=== PATIENT | female | born 1960 | race Caucasian/White ===

== ENCOUNTER → 2017-01-15 | Outpatient (CLI) | payer OTHER ==
[2017-01-15 18:05] LABS: BASO % 0.4 %; BASO ABS # 0.05 K/uL (0-0.2); COMPLETE YES; EOS % 2.1 %; HEMATOCRIT 45.3 % (37-47); IG% 0.7 %; LYMPH % 21.1 %; LYMPH ABS # 2.51 K/uL (1.2-3.4); MEAN CELL VOLUME 92.4 fL (80-100); MEAN CORPUSCULAR HEMOGLOBIN 31.6 pg (25-34); MEAN CORPUSCULAR HGB CONC 34.2 g/dl (32-36); MEAN PLATELET VOLUME 9.7 fL (7.4-10.4); MONO % 7.2 %; NEUT % 68.5 %; PLATELET COUNT 259 K/uL (130-400)
[2017-01-15 18:14] LABS: ALB/GLOB RATIO 0.9 (0.9-2); ALT/SGPT 30 U/L (12-78); AST/SGOT 17 U/L (15-37); BLOOD UREA NITROGEN 16 mg/dl (7-18); BUN/CREATININE RATIO 23.6 (10-20); CALCIUM 9.2 mg/dl (8.5-10.1); CARBON DIOXIDE 23 mmol/L (21-32); CHLORIDE 106 mmol/L (98-107); CREATININE 0.69 mg/dl (0.60-1.20); GLUCOSE 151 mg/dl (70-99); HDL CHOLESTEROL 38 mg/dl; POTASSIUM 3.9 mmol/L (3.5-5.1); SODIUM 140 mmol/L (136-145)
[2017-01-15 18:23] LABS: ALKALINE PHOSPHATASE 122 U/L (45-117); CHOLESTEROL 271 mg/dl (0-200); CHOLESTEROL/HDL RATIO 7.1; LDL CHOLESTEROL CALCULATED 192 mg/dl; TRIGLYCERIDES 203 mg/dl (0-150); VERY LOW DENSITY LIPOPROT CALC 41 mg/dl
[2017-01-15 18:24] LABS: RATIO 22.9 mcg/mg (0-30.0)
[2017-01-16 07:08] LABS: ESTIMATED AVERAGE GLUCOSE 143 mg/dl; HA1C FLAG Normal (Normal)
== END | disposition home or self-care (01) ==
LOC: C.LABMFLN 08:57
PROVIDERS: ATTEND Family Medicine
DX: I10 Essential (primary) hypertension (principal); E78.5 Hyperlipidemia, unspecified; E11.9 Type 2 diabetes mellitus without complications

== ENCOUNTER 2019-03-25 10:52 | Inpatient (IN) ==
--- NOTE | 2019-03-17 12:56 | PAT Medication Instructions ---
Medication Instructions Date of Service March 17, 2019 Home Medications Medication Instructions Recorded albuterol sulfate HFA 90 2 puffs INHALATION Q4H PRN #1 ea 03/13/19 mcg/actuation aerosol inhaler blood sugar diagnostic strips #30 ea 03/13/19 lancets 33 gauge #30 ea 03/13/19 losartan 25 mg tablet 25 mg PO QPM #90 tab 03/13/19 metformin 500 mg tablet 500 mg PO BID #180 tab 03/13/19 metoprolol succinate ER 50 mg 75 mg PO BID #270 tab 03/13/19 tablet,extended release 24 hr omeprazole 20 mg capsule,delayed 20 mg PO QPM #90 cap 03/13/19 release rosuvastatin 20 mg tablet 20 mg PO QAM #90 tab 03/13/19 venlafaxine ER 150 mg 150 mg PO QPM #90 cap 03/13/19 capsule,extended release 24 hr verapamil ER 180 mg 24 hr 180 mg PO QPM #90 cap 03/13/19 capsule,extended release krill oil 500 mg capsule 500 mg PO DAILY oxycodone-acetaminophen 5 mg-325 mg tablet 1 tab PO NEEDED albuterol sulfate HFA 90 mcg/actuation aerosol inhaler 2 puffs INHALATION Q4H NEEDED aspirin [Aspir-81] 81 mg PO QPM glucosamine-chondroitin [Osteo Bi-Flex] 1 tab PO DAILY losartan 25 mg tablet 25 mg PO QPM metformin 500 mg tablet 500 mg PO BID metoprolol succinate ER 50 mg tablet,extended release 24 hr 75 mg PO BID omeprazole 20 mg capsule,delayed release 20 mg PO QPM rosuvastatin 20 mg tablet 20 mg PO QAM venlafaxine ER 150 mg capsule,extended release 24 hr 150 mg PO QPM verapamil ER 180 mg 24 hr capsule,extended release 180 mg PO QPM ASK your prescriber and surgeon aspirin [Aspir-81] 81 mg PO QPM STOP taking 2 weeks before surgery krill oil 500 mg capsule 500 mg PO DAILY glucosamine-chondroitin [Osteo Bi-Flex] 1 tab PO DAILY DO NOT take the morning of surgery metformin 500 mg tablet 500 mg PO BID Take morning of surgery With a small sip of water, OTHERWISE NOTHING TO EAT OR DRINK AFTER MIDNIGHT: oxycodone-acetaminophen 5 mg-325 mg tablet 1 tab PO NEEDED (if needed; stop 4 hours prior to surgery) albuterol sulfate HFA 90 mcg/actuation aerosol inhaler 2 puffs INHALATION Q4H NEEDED (if needed; bring to hospital) metoprolol succinate ER 50 mg tablet,extended release 24 hr 75 mg PO BID rosuvastatin 20 mg tablet 20 mg PO QAM Take evening before surgery oxycodone-acetaminophen 5 mg-325 mg tablet 1 tab PO NEEDED (if needed) albuterol sulfate HFA 90 mcg/actuation aerosol inhaler 2 puffs INHALATION Q4H NEEDED (if needed) losartan 25 mg tablet 25 mg PO QPM metformin 500 mg tablet 500 mg PO BID metoprolol succinate ER 50 mg tablet,extended release 24 hr 75 mg PO BID omeprazole 20 mg capsule,delayed release 20 mg PO QPM venlafaxine ER 150 mg capsule,extended release 24 hr 150 mg PO QPM verapamil ER 180 mg 24 hr capsule,extended release 180 mg PO QPM Other Notes If you have any questions please call us at [phone] or [phone] or [phone] or [phone]
--- NOTE | 2019-03-17 15:14 | Anesthesiology Consultation ---
Date of Service March 17, 2019 Assessment & Plan (1) Encounter for pre-operative examination: - No previous anesthesia records available Chart Review Chart Review: Acceptable Risk for Surgery and Patient seen in Pre Admission Testing Consults Requested medical & cardiac (Dr. Ignacia Martinez (03/19) & Dr. Bazzi (03/10)) - Patient was seen on 03/10 by cardiology for preoperative evaluation. Per visit note from that date, "she may proceed at low cardiovascular risk". - Patient was seen by PCP's office on 03/19/19 for preoperative evaluation. Per note from that visit, "Pt is considered medically cleared to have lumbar surgery with Dr. Magdaleno, average risk" Teaching & Discussion Pre-Anesthesia Teaching/Discussion Notes: Instructed NPO after midnight before surgery, except medications with 15 cc of water. Medication instructions provided according to the PAT guidelines. History Surgery Operation Date: 03/25/19 12:55 Proposed Procedures p L4-L5 Decompression and Fusion, with Spinal Cord Mointoring - Antony Magdaleno, Height/Weight Height: 5 ft 7 in Weight: 98.6 kg Allergies Allergy/AdvReac Type Severity Reaction Status Date / Time walnut Allergy Unknown HIVES IN Verified 03/13/19 12:36 MOUTH acetaminophen [From Vicodin] AdvReac Unknown itchy Verified 03/13/19 12:36 adhesive tape AdvReac Unknown rash Verified 03/13/19 12:36 hydrocodone [From Vicodin] AdvReac Unknown itchy Verified 03/13/19 12:36 lisinopril AdvReac Unknown Cough Verified 03/13/19 12:36 statin AdvReac Unknown Muscle Uncoded 03/13/19 12:36 cramps Medications Home Medications Medication Instructions Recorded Confirmed Last Taken krill oil 500 mg capsule 500 mg PO DAILY cap 03/04/19 03/19/19 Unknown oxycodone-acetaminophen 5 mg-325 1 tab PO UD PRN #60 tab 03/04/19 03/19/19 Unknown mg tablet aspirin [Aspir-81] 81 mg PO QPM 03/13/19 03/19/19 03/12/19 blood sugar diagnostic strips #30 ea 03/13/19 03/13/19 Unknown glucosamine-chondroitin [Osteo 1 tab PO DAILY 03/13/19 03/19/19 Unknown Bi-Flex] lancets 33 gauge #30 ea 03/13/19 03/13/19 Unknown losartan 25 mg tablet 25 mg PO QPM #90 tab 03/13/19 03/13/19 Unknown metformin 500 mg tablet 500 mg PO BID #180 tab 03/13/19 03/13/19 Unknown metoprolol succinate ER 50 mg 75 mg PO BID #270 tab 03/13/19 03/13/19 Unknown tablet,extended release 24 hr omeprazole 20 mg capsule,delayed 20 mg PO QPM #90 cap 03/13/19 03/13/19 Unknown release rosuvastatin 20 mg tablet 20 mg PO QAM #90 tab 03/13/19 03/13/19 Unknown venlafaxine ER 150 mg 150 mg PO QPM #90 cap 03/13/19 03/13/19 Unknown capsule,extended release 24 hr verapamil ER 180 mg 24 hr 180 mg PO QPM #90 cap 03/13/19 03/13/19 Unknown capsule,extended release Past Medical History Medical History Anxiety (Acute) Esophageal reflux (Acute) Hyperlipidemia (Acute) Hypertension (Acute) Left lumbar radiculopathy (Acute) Lumbar canal stenosis (Acute) Palpitations (Acute) PVC'S AND PAC'S Psoriasis (Acute) Type 2 diabetes mellitus (Acute) History of Helicobacter pylori infection History of migraine headaches Hyperactive pharyngeal gag reflex Osteoarthritis Exercise / Class Metabolic Activity II 4-5 Yardwork/Stairs/Walk up hill (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 Swims, gardening, cuts grass. Able to climb stairs one at a time. Denies CP or SOB. ) Past Family History Family History Grandfather Family history of lung cancer Other Family history of breast cancer Family history of colon cancer in mother Past Surgical History Surgical History History of arthroscopy of right knee History of cardiac cath 15 YR AGO...NO FINDINGS...FRITZ? History of colon resection WITH COLOSTOMY AND SINCE REVERSED History of colonoscopy History of endoscopy History of eyelid surgery History of foot surgery R / JOINT REPLACED History of hysterectomy History of incisional hernia repair X2 History of tubal ligation Past Anesthesia History No Hx of Anesthesia Complications and No Family Hx of Anesthesia Complications History of PONV No Hx of PONV and No Hx of Motion Sickness Social History Smoking Status: Current every day smoker tobacco type: cigarettes Smoking cigarettes per day: 0.5PPD/ADVISED NPO Do You Dip or Chew Tobacco: No Hx Alcohol Use: Yes Alcohol type: wine and hard liquor alcohol intake frequency: holidays/special occasions only Hx Substance Use: No substance use type: does not use Review of Systems Patient denies chest pain, shortness of breath, dyspnea on exertion, cough, wheezing, palpitations. +Joint Pain (Back, Left Shoulder, Bilat Knees, Neck, Right Middle Finger) +Acid Reflux (Controlled with medication/diet) +Palpitations (Due to PVCs and PACs) Physical Exam Vital Signs BP: 119/74 P: 65 R: 18 T: 97.6 SPO2: 97% on RA ENMT Mouth: + poor dentition Thyromental Distance: > or= 3.5 Finger Breadths (4) Mallampati Class: II Neck normal visual inspection and trachea midline; neck extension not limited Respiratory normal respiratory effort Auscultation: lungs clear to auscultation bilaterally Cardiovascular Rate/Rhythm: regular rate and regular rhythm Heart Sounds: no murmur Vessels: no carotid bruit Neurologic moves all extremities Psychiatric Orientation: alert and oriented x 3 Testing Laboratory Results 03/17/19 15:34 03/17/19 15:34 PT 10.0 Seconds (9.0-12.0) 03/17/19 15:34 INR 1.0 (0.9-1.1) 03/17/19 15:34 APTT 31.6 Seconds (21.0-31.0) H 03/17/19 15:34 Urine Color Yellow 03/17/19 15:34 Urine Appearance Clear (Clear) 03/17/19 15:34 Urine pH 6.5 (4.5-7.5) 03/17/19 15:34 Ur Specific Rayle 1.023 (1.000-1.030) 03/17/19 15:34 Urine Protein Negative (Negative) 03/17/19 15:34 Urine Glucose (UA) Negative (Negative) 03/17/19 15:34 Urine Ketones Trace (Negative) H 03/17/19 15:34 Urine Nitrite Negative (Negative) 03/17/19 15:34 Ur Leukocyte Esterase Negative (Negative) 03/17/19 15:34 Blood Type A Positive 03/17/19 15:34 Antibody Screen NEGATIVE 03/17/19 15:34 Laboratory Tests 03/17/19 15:34 Hemoglobin A1c 6.1 H Electrocardiogram Date: 03/19/19 Findings: + SB @ (56) New bradycardia. PVCs have resolved. Chest X-Ray Date: 10/19/18 Findings: + NAD Stress Test Date: 11/06/18 Type: exercise Exercise echo exam is sub maximal as the patient only achieved 61% of target heart rate. There were no EKG or echo wall motion abnormalities of inducible ischemia. Patient denied chest discomfort reporting only leg pain and fatigue at peak exercise. Inadequate cardiovascular stress test as patient obtained 61% of their age predicted maximal target HR Patient exercise for 4:11 minutes of the Thom protocol with a functional capacity of 5.0 METS. No significant arrhythmias were noted. Normal blood pressure and HR response to exercise. The baseline Echo Doppler study is unremarkable. The left ventricular endocardium is adequately assessed using ultrasound e nhancing agent Definity. Resting EKG: Sinus rhythm and the tracing is normal. Stress EKG: No significant ST changes noted during peak exercise. Occasional PACs were noted during stress. The stress test was terminated due to fatigue. No symptoms were noted.
[2019-03-17 15:57] LABS: Basophils # (auto) 0.03 K/uL (0-0.2); Basophils % (auto) 0.2 %; Eosinophils # (auto) 0.28 K/uL (0-0.5); Eosinophils % (auto) 2.3 %; Hematocrit (blood only) 43.5 % (37-47); Hemoglobin 14.7 g/dL (12.0-16.0); Immature Granulocytes # (auto) 0.03 K/uL (0.00-0.02); Immature Granulocytes % (auto) 0.2 %; Lymphocytes # (auto) 3.68 K/uL (1.2-3.4); Mean Corpuscular Hgb Conc 33.8 g/dL (32-36); Mean Corpuscular Volume 91.8 fL (80-100); Mean Platelet Volume 9.5 fL (7.4-10.4); Monocytes # (auto) 0.77 K/uL (0.11-0.59); Monocytes % (auto) 6.3 %; Neutrophils # (auto) 7.49 K/uL (1.4-6.5); Platelet Count 253 K/uL (130-400); RDW Coefficient of Variation 12.4 % (11.5-14.5); RDW Standard Deviation 41.9 fL (36.4-46.3); Red Blood Count 4.74 M/uL (4.2-5.4); White Blood Count 12.28 K/uL (4.8-10.8)
[2019-03-17 16:01] LABS: Appearance Urine Clear (Clear); Bilirubin Urine Negative (Negative); Blood Urine Negative (Negative); Color Urine Yellow; Glucose Urine UA Negative (Negative); Ketones Urine Trace (Negative); Leukocyte Esterase Urine Negative (Negative); Nitrite Urine Negative (Negative); Protein Urine Negative (Negative); Specific Gravity Urine 1.023 (1.000-1.030); Urobilinogen Urine Negative (Negative); pH Urine 6.5 (4.5-7.5)
[2019-03-17 16:04] LABS: BUN Creatinine Ratio 30.8 (10-20); Calcium 9.4 mg/dl (8.5-10.1); Creatinine Clr Calc Pharmacy 112.1 ml/min; Est GFR (African American) 112.9; Est GFR (Non-African American) 97.4; Potassium 3.8 mmol/L (3.5-5.1)
[2019-03-17 16:08] LABS: Partial Thromboplastin Ratio 1.2; Partial Thromboplastin Time 31.6 Seconds (21.0-31.0)
[~2019-03-25 10:52] MED LIST: CEFAZOLIN 2000MG 2,000 MG/15 ML SYR IV SCH; LR 15ML/HR IV SCH
[2019-03-25] MEDS ORDERED: ATROPINE SULFATE 0.1 MG/ML 10ML SYR IV PRN (11:13)
[2019-03-25] MEDS ORDERED: ePHEDrine sulfate 50 MG/ML AMP IV PRN (11:13)
[2019-03-25] MEDS ORDERED: HYDROmorphone INJ 2 MG/ML SYR/VIAL IV PRN (11:13)
[2019-03-25] MEDS ORDERED: fentaNYL citrate 100 MCG/2 ML VIAL IV PRN (11:13)
[2019-03-25] MEDS ORDERED: fentaNYL citrate 100 MCG/2 ML VIAL ONE ×4 (12:16→14:45)
[2019-03-25] MEDS ORDERED: MIDAZOLAM HCL 1 MG/ML 2ML VIAL ONE (12:16)
--- NOTE | 2019-03-25 12:28 | History & Physical Bridge Note ---
Date of Service March 25, 2019 History & Physical Bridge Note I have examined the patient, reviewed the History & Physical and in the interval since the performance of the History & Physical I have noted the following changes of clinical significance: no changes noted
--- NOTE | 2019-03-25 12:29 | History & Physical Report ---
Date of Service March 25, 2019 Assessment & Plan (1) Spinal stenosis, lumbar region with neurogenic claudication: L4-S1 decompression and fusion Present on Admission?: Yes History of Present Illness Chief Complaint: Back and leg pain Primary Care Provider: Rose Martinez MD This is a 50-year-old female who presents with chronic persistent back and leg pain. After failing extensive course of nonoperative care she is here for surgical intervention. Allergies Allergy/AdvReac Type Severity Reaction Status Date / Time walnut Allergy Unknown HIVES IN Verified 03/25/19 11:36 MOUTH adhesive tape AdvReac Unknown rash Verified 03/25/19 11:36 hydrocodone [From Vicodin] AdvReac Unknown itchy Verified 03/25/19 11:36 lisinopril AdvReac Unknown Cough Verified 03/25/19 11:36 [id number] Reductase AdvReac Muscle Pain Verified 03/25/19 11:36 Inhibitor Home Medications Home Medications Medication Instructions Recorded Confirmed Type krill oil 500 mg capsule 500 mg PO DAILY cap 03/04/19 03/25/19 History oxycodone-acetaminophen 5 mg-325 1 tab PO UD PRN #60 tab 03/04/19 03/25/19 History mg tablet aspirin [Aspir-81] 81 mg PO QPM 03/13/19 03/25/19 History blood sugar diagnostic strips #30 ea 03/13/19 03/13/19 Rx glucosamine-chondroitin [Osteo 1 tab PO DAILY 03/13/19 03/25/19 History Bi-Flex] lancets 33 gauge #30 ea 03/13/19 03/13/19 Rx losartan 25 mg tablet 25 mg PO QPM #90 tab 03/13/19 03/25/19 Rx metformin 500 mg tablet 500 mg PO BID #180 tab 03/13/19 03/25/19 Rx metoprolol succinate ER 50 mg 75 mg PO BID #270 tab 03/13/19 03/25/19 Rx tablet,extended release 24 hr omeprazole 20 mg capsule,delayed 20 mg PO QPM #90 cap 03/13/19 03/25/19 Rx release rosuvastatin 20 mg tablet 20 mg PO QAM #90 tab 03/13/19 03/25/19 Rx venlafaxine ER 150 mg 150 mg PO QPM #90 cap 03/13/19 03/25/19 Rx capsule,extended release 24 hr verapamil ER 180 mg 24 hr 180 mg PO QPM #90 cap 03/13/19 03/25/19 Rx capsule,extended release Past Med/Surg History Family History Grandfather Family history of lung cancer Other Family history of breast cancer Family history of colon cancer in mother Social History Preferred Language: Danish Communication Ability: Effective Financial Investment Manager Required: No Beliefs That Will Affect Care: Islam Islam Beliefs: JEW Current Living Situation: Spouse, Family and Other Other Information That Helps Us Care for You: No Feels Safe at Home: Yes Smoking Status: Current every day smoker Tobacco Type: cigarettes packs per day: 0.5 Do You Dip or Chew Tobacco: No Second Hand Exposure: Yes Hx Alcohol Use: Yes Alcohol type: wine and hard liquor Hx Substance Use: No Physical Exam Physical Exam: Patient is alert and oriented neurologically intact. Results & Data Vital Signs (Past 12 Hours) Vital Signs Temp Pulse Resp BP Pulse Ox 03/25/19 11:41 36.7 C 65 20 155/83 H 96
[2019-03-25] MEDS ORDERED: HYDROmorphone INJ 2 MG/ML SYR/VIAL ONE ×2 (12:41→14:41)
[2019-03-25] MEDS ORDERED: BUPIVACAINE/EPINEPHRINE 0.5% MPF 1:200,000 30 ML VIAL ONE (12:45)
[2019-03-25] MEDS ORDERED: BACITRACIN INJ 50,000 UNIT VIAL ONE (12:45)
[2019-03-25] MEDS ORDERED: ALBUTEROL HFA INHALER 8.5 GM ONE ×2 (13:17→13:34)
[2019-03-25] MEDS ORDERED: DEXAMETHASONE SOD INJ 4 MG/ML VIAL ONE (13:34)
[2019-03-25] MEDS ORDERED: GLYCOPYRROLATE 0.2 MG/ML VIAL ONE (13:34)
[2019-03-25] MEDS ORDERED: ONDANSETRON INJ 2 MG/ML 2 ML VIAL ONE (13:34)
[2019-03-25] MEDS ORDERED: PROPOFOL IV EMULSION 10 MG/ML 20 ML VIAL IV ONE ×2 (13:34→14:25)
[2019-03-25] MEDS ORDERED: LIDOCAINE HCL 2% 2 ML VIAL/AMP(20MG/ML) INFIL ONE (13:34)
[2019-03-25] MEDS ORDERED: FLOSEAL HEMOSTATIC MATRIX 10ML TOP ONE (13:34)
[2019-03-25] MEDS ORDERED: ePHEDrine sulfate 50 MG/ML SYR ONE (13:34)
[2019-03-25] MEDS ORDERED: NEOSTIGMINE METHYLSULFATE 1 MG/ML 10ML VIAL ONE (13:34)
[2019-03-25] MEDS ORDERED: LARYING-O-JET KIT (LTA) ONE (13:34)
[2019-03-25] MEDS ORDERED: ROCURONIUM BROMIDE 10 MG/ML 5 ML VIAL ONE ×2 (13:34→14:25)
[2019-03-25] MEDS ORDERED: KETOROLAC 30 MG/ML VIAL ONE (15:02)
--- NOTE | 2019-03-25 15:09 | Operative Report ---
Post Operative Report Pre & Post Diagnosis Operation Date: 03/25/19 12:55 Pre-Op Diagnosis: lumbar spinal stenosis with neurogenic claudication. Spondylolisthesis L4-5 Post-Op Diagnosis: Same Procedure Operation Date: 03/25/19 12:55 Actual Procedures #1 lumbar decompression with bilateral medial facetectomies and foraminotomies L3-4 L4-5 L5-S1 per #2 posterior spinal fusion L4-5 L5-S1 per #3 placement posterior his mentation L4-5 L5-S1 per #4 interbody fusion L4-5. #5 placement of peek cage 12 x 22 mm at L4-5 per #6 placement of local autograft in the posterior lateral gutters per #7 placement infuse collagen sponge bone mass graft in the posterior lateral gutters and ostial amp in the interbody space. Surgeon Antony Magdaleno, DO Field Cashier Mojgan Cuadra Estimated Blood Loss 225 Findings See Below The patient is 5 foot 7 inches tall weighing 99 kg with a BMI of 34. Patient's body habitus prolonged surgical time by 40% and increased significant surgical difficulty requiring our deepest retractors and longus Kerrisons in order to perform her procedure. Specimens None Indications This is a 58-year-old female who presents with above-mentioned diagnosis after failing extensive course of nonoperative care is here for surgical intervention. Description of Procedure Patient was met with identified and informed consent obtained. Patient was then taken to the operative suite underwent intubation placed in a prone position on the Giovanni table on top of the [place] frame. All bony prominences well-padded eyes inspected to ensure no external pressure placed upon the peer at this point the lumbar spine was prepped and draped in the normal sterile fashion. Sharp dissection with the assistance of Bovie cautery was performed down to and exposing the lamina and transverse processes for L5 and sacral ala bilaterally. From a caudal to cephalad fashion complete laminectomy of L5 L4 and partial laminectomy of addressing severe lateral recess and foraminal stenosis. Pedicle screws were then placed in L4-L5 and sacral ala bilaterally. The probably size fide placed by way of a transforaminal approach and left complete discectomy of L4-5 was performed in plate graded to subcortical bleeding bone and a 12 x 22 mm peek cage filled with osteo-amp bone graft tapped in position. The rods were then locked in final position bilaterally. The transverse processes of L4-L5 and sacral ala bur to subcortical bleeding bone. Infuse collagen sponge master graft local autograft placed in the posterior lateral gutters. 15 round PATRICIA drain was then inserted. The incision was then closed with 1 Vicryl fascia 2-0 Vicryl subcutaneously and 4 Monocryl for final skin closure. Steri-Strip sterile dressings placed. Patient awakened taken to PACU stable condition. Please note Mojgan Cuadra was present throughout the entire procedure involved the patient positioning complex portions of the surgery and final skin closure. Lastly spinal cord monitoring was utilized that procedure no changes noted. I attest to the content of the Intraoperative Record and any orders documented therein. Any exceptions are noted below.
--- NOTE | 2019-03-25 15:16 | Fluoroscopy Report ---
FL lumbar spine 2-3V CLINICAL HISTORY: L4-L5 DECOMPRESSION AND FUSION COMPARISON STUDY: None FLUOROSCOPY TIME: 21 seconds. NUMBER OF FLUOROSCOPIC IMAGES: 2 FINDINGS: 2 intraoperative fluoroscopic spot images reveal postsurgical changes of a lower lumbar dis cectomy and interbody fusion. There is a possible transitional vertebra, and accurate numbering is no t possible on the limited [id number] images. There is posterior fusion with 3 level consecutive pe dicle screws and adjoining spinal rods. IMPRESSION: Intraoperative radiographs demonstrating postsurgical changes of discectomy and interbod y fusion and posterior pedicle screw fixation Electronically signed by: Clifford Newby M.D. 03/25/2019 3:14 PM
--- NOTE | 2019-03-25 15:58 | Anesthesiology Progress Note ---
Date of Service March 25, 2019 Anesthesia Post Procedure Vital Signs Vital Signs: Temp Pulse Pulse Resp BP Pulse Ox 03/25/19 15:50 81 15 178/76 H 94 03/25/19 15:40 84 15 169/75 H 96 03/25/19 15:30 36.7 C 86 14 166/82 H 96 03/25/19 11:41 36.7 C 65 20 155/83 H 96 Pain Intensity Left Leg: Pain Intensity: 3 Transfer of Care Handoff Completed per policy Notes Mental Status: alert / awake / arousable Patient Amnestic to Procedure: Yes Nausea / Vomiting: adequately controlled Pain: adequately controlled Airway Patency, RR, SpO2: stable & adequate BP & HR: stable & adequate Hydration State: stable & adequate Anesthetic Complications: no major complications apparent and Pt Satisfied with anesthetic care
[2019-03-25] MEDS ORDERED: ACETAMINOPHEN 1,000 MG/100 ML VIAL IV PRN (16:25)
[2019-03-25] MEDS ORDERED: ONDANSETRON 4 MG TAB PO PRN (16:25)
[2019-03-25] MEDS ORDERED: HYDROmorphone INJ 0.5 MG/0.5 ML SYR IV PRN (16:25)
[2019-03-25] MEDS ORDERED: METOCLOPRAMIDE HCL INJ 5 MG/ML 2 ML VIAL IV PRN (16:25)
[2019-03-25] MEDS ORDERED: ALUMINUM/MAGNESIUM SUSP 30 ML UDC PO PRN (16:25)
[2019-03-25] MEDS ORDERED: PROMETHAZINE HCL 12.5 MG in SODIUM CHLORIDE 0.9% 50 ML IV PRN (16:25)
[2019-03-25] MEDS ORDERED: SOD PHOSPHATE/SOD BIPHOSPHATE ENEMA 132 ML BTL PR PRN (16:25)
[2019-03-25] MEDS ORDERED: DO NOT ADMINISTER FLU VACCINE PRN (16:25)
[2019-03-25] MEDS ORDERED: DO NOT ADMINISTER PNEUMOCOCCAL VACCINE PRN (16:25)
[2019-03-25] MEDS ORDERED: ACETAMINOPHEN 500 MG TAB PO PRN (16:25)
[2019-03-25] MEDS ORDERED: FAMOTIDINE 20 MG TAB PO PRN (16:25)
[2019-03-25] MEDS ORDERED: LORazepam 0.5 MG/1 ML VIAL IV PRN (16:25)
[2019-03-25] MEDS ORDERED: LORazepam 0.5 MG TAB PO PRN (16:25)
[2019-03-25] MEDS ORDERED: BISACODYL 10 MG SUPP PR PRN (16:25)
[2019-03-25] MEDS ORDERED: ONDANSETRON INJ 2 MG/ML 2 ML VIAL IV PRN (16:25)
[2019-03-25] MEDS ORDERED: MAGNESIUM HYDROXIDE SUSP 30 ML UDC PO PRN (16:25)
[2019-03-25] MEDS: OXYCODONE HCL IR 5 MG TAB (IMMEDIATE RELEASE) PO PRN ×3 (16:40→21:01)
[2019-03-25] MEDS: KETOROLAC TROMETHAMINE 15 MG/ML VIAL IV SCH ×3 (17:47→22:04)
[2019-03-25] MEDS ORDERED: COUGH DROP (SUGAR FREE) LOZ 24 LOZ/1 BOX BUCCAL PRN (19:15)
[2019-03-25] MEDS: LOSARTAN POTASSIUM 25 MG TAB PO SCH (20:47)
[2019-03-25] MEDS: ASPIRIN 81 MG ECTAB PO SCH (20:47)
[2019-03-25] MEDS: PANTOprazole 40 MG TAB PO SCH (20:48)
[2019-03-25] MEDS: METOPROLOL SUCC 50MG EXT REL TAB PO SCH (20:48)
[2019-03-25] MEDS: VENLAFAXINE HCL XR 150 MG CAPXR PO SCH (20:48)
[2019-03-25] MEDS: VERAPAMIL HCL 180 MG TABCR PO SCH (20:48)
[2019-03-25] MEDS: DOCUSATE SODIUM/SENNA 50/8.6MG TAB PO SCH (20:48)
[2019-03-25] MEDS: CEFAZOLIN 2000MG 2,000 MG/15 ML SYR IV SCH (21:01)
[2019-03-25] MEDS: SODIUM CHLORIDE 0.9% 1000ML 1,000 ML IV SCH ×2 (21:43→23:29)
[2019-03-26] MEDS: OXYCODONE HCL IR 5 MG TAB (IMMEDIATE RELEASE) PO PRN ×5 (01:04→23:28)
[2019-03-26] MEDS: TRAMADOL HCL 50 MG TABLET PO PRN ×3 (02:35→22:15)
[2019-03-26] MEDS: CEFAZOLIN 2000MG 2,000 MG/15 ML SYR IV SCH (04:09)
[2019-03-26] MEDS: KETOROLAC TROMETHAMINE 15 MG/ML VIAL IV SCH ×2 (04:10→11:21)
[2019-03-26] MEDS: SODIUM CHLORIDE 0.9% 1000ML 1,000 ML IV SCH (04:25)
[2019-03-26] MEDS: POLYETHYLENE (MIRALAX) 17 GM PACK PO SCH ×4 (05:44→23:24)
[2019-03-26 06:10] LABS: Basophils # (auto) 0.01 K/uL (0-0.2); Hematocrit (blood only) 35.2 % (37-47); Hemoglobin 11.9 g/dL (12.0-16.0); Immature Granulocytes # (auto) 0.07 K/uL (0.00-0.02); Immature Granulocytes % (auto) 0.3 %; Lymphocytes # (auto) 1.51 K/uL (1.2-3.4); Lymphocytes % (auto) 7.5 %; Mean Corpuscular Hgb Conc 33.8 g/dL (32-36); Mean Corpuscular Volume 91.4 fL (80-100); Mean Platelet Volume 9.7 fL (7.4-10.4); Monocytes # (auto) 1.26 K/uL (0.11-0.59); Monocytes % (auto) 6.3 %; Neutrophils # (auto) 17.22 K/uL (1.4-6.5); Neutrophils % (auto) 85.9 %; Platelet Count 219 K/uL (130-400); RDW Coefficient of Variation 12.2 % (11.5-14.5); RDW Standard Deviation 41.2 fL (36.4-46.3); Red Blood Count 3.85 M/uL (4.2-5.4); White Blood Count 20.07 K/uL (4.8-10.8)
[2019-03-26 06:44] LABS: BUN Creatinine Ratio 30.3 (10-20); Calcium 8.7 mg/dl (8.5-10.1); Creatinine Clr Calc Pharmacy 91.4 ml/min; Est GFR (African American) 92.8; Est GFR (Non-African American) 80.1
--- NOTE | 2019-03-26 07:56 | Anesthesiology Progress Note ---
Date of Service March 26, 2019 Anesthesia Post Procedure Vital Signs Vital Signs: Temp Pulse Pulse Pulse Pulse Resp BP 03/26/19 02:25 36.8 C 73 16 166/70 H 03/26/19 01:00 70 03/25/19 23:00 36.5 C 74 16 163/77 H 03/25/19 19:12 36.6 C 73 16 147/80 H 03/25/19 18:42 80 18 03/25/19 17:18 36.5 C 70 17 135/78 03/25/19 16:55 36.4 C L 69 16 03/25/19 16:15 36.9 C 74 15 03/25/19 16:00 36.4 C L 77 16 03/25/19 15:50 81 15 03/25/19 15:40 84 15 03/25/19 15:30 36.7 C 86 14 03/25/19 11:41 36.7 C 65 20 BP Pulse Ox 03/26/19 02:25 94 03/26/19 01:00 160/80 H 03/25/19 23:00 97 03/25/19 19:12 98 03/25/19 18:42 152/80 H 03/25/19 17:18 93 03/25/19 16:55 130/76 96 03/25/19 16:15 159/79 H 94 03/25/19 16:00 163/77 H 93 03/25/19 15:50 178/76 H 94 03/25/19 15:40 169/75 H 96 03/25/19 15:30 166/82 H 96 03/25/19 11:41 155/83 H 96 Pain Intensity Left Leg: Pain Intensity: 7 Notes Mental Status: alert / awake / arousable and participated in evaluation Patient Amnestic to Procedure: Yes Nausea / Vomiting: adequately controlled Pain: adequately controlled Airway Patency, RR, SpO2: stable & adequate BP & HR: stable & adequate Hydration State: stable & adequate Anesthetic Complications: no major complications apparent and Pt Satisfied with anesthetic care
[2019-03-26] MEDS ORDERED: CARBOHYDRATES FOR HYPOGLYCEMIA PO PRN (08:10)
[2019-03-26] MEDS ORDERED: GLUCAGON FOR INJ 1 MG VIAL SQ PRN (08:10)
[2019-03-26] MEDS ORDERED: DEXTROSE 50% 50 ML SYRINGE IV PRN (08:10)
[2019-03-26] MEDS ORDERED: GLUCOSE 10 TABS/TUBE PO PRN (08:10)
[2019-03-26] MEDS ORDERED: GLUCOSE 40% GEL 15 GM TUBE PO PRN (08:10)
--- NOTE | 2019-03-26 08:19 | Orthopedic Progress Note ---
Date of Service March 26, 2019 Assessment & Plan (1) Spinal stenosis, lumbar region with neurogenic claudication: This time we will continue physical therapy advance her bowel drain. I am not surprised she is having some difficulties with the left leg chronically L5 nerve is is is is is this was severely compressed intraoperatively. I strongly suspect she will improve dramatically over the next several weeks. Subjective Back pain is controlled she has no leg pain but numbness to the left anterior tibia. Physical Exam Physical Exam: Patient is in chair. She is comfortable. Is reasonable strength testing with some deficit of dorsiflexion on the left. Results & Data Vital Signs (Past 12 Hours) Vital Signs Temp Pulse Resp BP BP Pulse Ox 03/26/19 02:25 36.8 C 73 16 166/70 H 94 03/26/19 01:00 70 160/80 H 03/25/19 23:00 36.5 C 74 16 163/77 H 97
[2019-03-26] MEDS: ROSUVASTATIN CALCIUM 20 MG TAB PO SCH (08:56)
[2019-03-26] MEDS: METOPROLOL SUCC 50MG EXT REL TAB PO SCH ×2 (08:56→20:43)
[2019-03-26] MEDS: INSULIN ASPART 100 UNITS/ML 3 ML PEN SC SCH ×3 (13:09→21:44)
--- NOTE | 2019-03-26 15:12 | Hospitalist Consultation ---
Date of Consultation March 26, 2019 Assessment & Plan (1) Spinal stenosis, lumbar region with neurogenic claudication: - Status post #1 lumbar decompression with bilateral medial facetectomies and foraminotomies L3-4 L4-5 L5-S1 per #2 posterior spinal fusion L4-5 L5-S1 per #3 placement posterior his mentation L4-5 L5-S1 per #4 interbody fusion L4-5. #5 placement of peek cage 12 x 22 mm at L4-5 per #6 placement of local autograft in the posterior lateral gutters per #7 placement infuse collagen sponge bone mass graft in the posterior lateral gutters and ostial amp in the interbody space on 03/25/, POD#1. - Pain control and bowel regimen per primary team. - PT/OT evaluation for discharge planning. - DVT ppx: holding following lumbar procedure. (2) Leukocytosis: - WBC increased to 20 this morning -- appears to be elevated at baseline, ~11. - Will continue to monitor -- did not receive pre-op Decadron. (3) Anemia: - Hgb trending down as expected in setting of acute blood loss/procedure. - Will monitor qAM. (4) HLD (hyperlipidemia): - Continue statin as prescribed. (5) HTN (hypertension): - Continue Losartan, Metoprolol and Verapamil as prescribed. (6) Type II diabetes mellitus: - Most recent A1C was 6.1; holding home Metformin. - Ordered SSI coverage. (7) Migraines: - No current symptoms. (8) Anxiety: - Continue Effexor as prescribed. (9) GERD (gastroesophageal reflux disease): - PPI daily. (10) Psoriasis: - No current plaques noted. (11) DVT prophylaxis: - SCDs; holding pharmacologic ppx 48-72 hours post op. Dispo: Will continue to follow, please call with any questions. Supervising Physician Co-Signing Physician Notes Attending Attestation - Chart reviewed in detail, care plan d/w CHRISTOFER Syed. I agree w/ the lopez components of her consult documentation. POD #1 from lumbar surgery for spinal stenosis. Labs, vitals and sugars acceptable today. Mild acute blood loss anemia - will follow. Minor Estrada MD History of Present Illness Reason for Consultation: Medical Management Attending Physician: Antony Magdaleno DO History of Present Illness Ms. Lucas is a 58 year old female with past medical history of anxiety, GERD, HLD, HTN, Psoriasis, Type 2 DM, migraines who presented for a planned procedure in setting of lumbar stenosis. Pt. is doing well post op. Has not had a BM, is not passing gas. Denies chest pain, SOB, N/V, abd pain. Allergies Allergy/AdvReac Type Severity Reaction Status Date / Time walnut Allergy Unknown HIVES IN Verified 03/25/19 11:36 MOUTH adhesive tape AdvReac Unknown rash Verified 03/25/19 11:36 hydrocodone [From Vicodin] AdvReac Unknown itchy Verified 03/25/19 11:36 lisinopril AdvReac Unknown Cough Verified 03/25/19 11:36 [id number] Reductase AdvReac Muscle Pain Verified 03/25/19 11:36 Inhibitor Home Medications Home Medications Medication Instructions Recorded Confirmed Type krill oil 500 mg capsule 500 mg PO DAILY cap 03/04/19 03/30/19 History aspirin [Aspir-81] 81 mg PO QPM 03/13/19 03/30/19 History blood sugar diagnostic strips #30 ea 03/13/19 03/30/19 Rx lancets 33 gauge #30 ea 03/13/19 03/30/19 Rx losartan 25 mg tablet 25 mg PO QPM #90 tab 03/13/19 03/30/19 Rx metformin 500 mg tablet 500 mg PO BID #180 tab 03/13/19 03/30/19 Rx metoprolol succinate ER 50 mg 75 mg PO BID #270 tab 03/13/19 03/30/19 Rx tablet,extended release 24 hr omeprazole 20 mg capsule,delayed 20 mg PO QPM #90 cap 03/13/19 03/30/19 Rx release rosuvastatin 20 mg tablet 20 mg PO QAM #90 tab 03/13/19 03/30/19 Rx venlafaxine ER 150 mg 150 mg PO QPM #90 cap 03/13/19 03/30/19 Rx capsule,extended release 24 hr verapamil ER 180 mg 24 hr 180 mg PO QPM #90 cap 03/13/19 03/30/19 Rx capsule,extended release oxycodone 5 mg PO Q4H PRN #30 tab 03/26/19 03/30/19 Rx tramadol 50 mg PO Q4H PRN #30 tab 03/26/19 03/30/19 Rx Patient History Medical History History of Helicobacter pylori infection History of migraine headaches Hyperactive pharyngeal gag reflex Anxiety (Acute) Esophageal reflux (Acute) Hyperlipidemia (Acute) Hypertension (Acute) Left lumbar radiculopathy (Acute) Lumbar canal stenosis (Acute) Palpitations (Acute) PVC'S AND PAC'S Psoriasis (Acute) Type 2 diabetes mellitus (Acute) Osteoarthritis Surgical History History of arthroscopy of right knee History of cardiac cath 15 YR AGO...NO FINDINGS...FRITZ? History of colon resection WITH COLOSTOMY AND SINCE REVERSED History of colonoscopy History of endoscopy History of eyelid surgery History of foot surgery R / JOINT REPLACED History of hysterectomy History of incisional hernia repair X2 History of tubal ligation Family History Grandfather Family history of lung cancer Other Family history of breast cancer Family history of colon cancer in mother Social History Preferred Language: [place] Communication Ability: Effective Supervisor [employer] Required: No Beliefs That Will Affect Care: Synagogue Synagogue Beliefs: FAITH marital status: Current Living Situation: Spouse, Family and Other Other Information That Helps Us Care for You: No Feels Safe at Home: Yes Smoking Status: Current every day smoker Tobacco Type: cigarettes packs per day: 0.5 Do You Dip or Chew Tobacco: No Second Hand Exposure: Yes Hx Alcohol Use: Yes Alcohol type: wine and hard liquor Hx Substance Use: No Review of Systems Review of Systems: All systems reviewed & are unremarkable except as noted in HPI & below Constitutional: no fever, no chills, no fatigue and no weakness Respiratory: no cough, no dyspnea and no dyspnea on exertion Cardiovascular: no chest pain, no palpitations and no edema Gastrointestinal: + constipation; no abdominal pain, no nausea and no vomiting Genitourinary: no difficulty urinating Musculoskeletal: no back pain and no joint pain Integumentary: no non-healing lesions Allergy / Immunological: no rash Physical Exam Physical Exam: General: Resting comfortably HEENT: NC/AT; PERRLA with EOMI; [place] conjunctiva, MMM. No erythema of posterior pharynx Cardiac: RRR Lungs: CTA bilaterally; No rhonchi, wheezing, or rales Abdomen: Bowel normoactive X 4; Nontender to palpation Extremities: Warm. No edema present Neuro: No focal weakness Skin: No rash Results & Data Vital Signs (Past 12 Hours) Vital Signs Temp Pulse Resp BP Pulse Ox 03/26/19 11:05 36.7 C 71 16 153/79 H 03/26/19 07:10 36.6 C 73 16 145/76 H 100 Laboratory Results 03/26/19 03/26/19 03/26/19 Range/Units 12:06 08:25 05:23 WBC (4.8-10.8) K/uL RBC (4.2-5.4) M/uL Hgb (12.0-16.0) g/dL Hct (37-47) % MCV (80-100) fL MCH (25-34) pg MCHC (32-36) g/dL RDW Std Deviation (36.4-46.3) fL RDW Coeff of Jaron (11.5-14.5) % Plt Count (130-400) K/uL MPV (7.4-10.4) fL Immature Gran % (Auto) % Neut % (Auto) % Lymph % (Auto) % [place] % (Auto) % Eos % (Auto) % Baso % (Auto) % Immature Gran # (Auto) (0.00-0.02) K/uL Neut # (Auto) (1.4-6.5) K/uL Lymph # (Auto) (1.2-3.4) K/uL [place] # (Auto) (0.11-0.59) K/uL Eos # (Auto) (0-0.5) K/uL Baso # (Auto) (0-0.2) K/uL Sodium 138 (136-145) mmol/L Potassium 4.0 (3.5-5.1) mmol/L Chloride 104 (98-107) mmol/L Carbon Dioxide 29 (21-32) mmol/L Anion Gap 5.0 (3-11) BUN 24 H (7-18) mg/dl Creatinine 0.81 (0.6-1.2) mg/dl Est Cr Clr Drug Dosing 91.4 ml/min Est GFR ( Amer) 92.8 Est GFR (Non-Af Amer) 80.1 BUN/Creatinine Ratio 30.3 H (10-20) Glucose 138 H (70-99) mg/dl POC Glucose 141 H 139 H (70-99) Calcium 8.7 (8.5-10.1) mg/dl 03/26/19 03/25/19 03/25/19 Range/Units 05:23 20:27 17:20 WBC 20.07 H (4.8-10.8) K/uL RBC 3.85 L (4.2-5.4) M/uL Hgb 11.9 L (12.0-16.0) g/dL Hct 35.2 L (37-47) % MCV 91.4 (80-100) fL MCH 30.9 (25-34) pg MCHC 33.8 (32-36) g/dL RDW Std Deviation 41.2 (36.4-46.3) fL RDW Coeff of Jaron 12.2 (11.5-14.5) % Plt Count 219 (130-400) K/uL MPV 9.7 (7.4-10.4) fL Immature Gran % (Auto) 0.3 % Neut % (Auto) 85.9 % Lymph % (Auto) 7.5 % [place] % (Auto) 6.3 % Eos % (Auto) 0.0 % Baso % (Auto) 0.0 % Immature Gran # (Auto) 0.07 H (0.00-0.02) K/uL Neut # (Auto) 17.22 H (1.4-6.5) K/uL Lymph # (Auto) 1.51 (1.2-3.4) K/uL [place] # (Auto) 1.26 H (0.11-0.59) K/uL Eos # (Auto) 0.00 (0-0.5) K/uL Baso # (Auto) 0.01 (0-0.2) K/uL Sodium (136-145) mmol/L Potassium (3.5-5.1) mmol/L Chloride (98-107) mmol/L Carbon Dioxide (21-32) mmol/L Anion Gap (3-11) BUN (7-18) mg/dl Creatinine (0.6-1.2) mg/dl Est Cr Clr Drug Dosing ml/min Est GFR ( Amer) Est GFR (Non-Af Amer) BUN/Creatinine Ratio (10-20) Glucose (70-99) mg/dl POC Glucose 213 H 145 H (70-99) Calcium (8.5-10.1) mg/dl 03/25/19 Range/Units 15:34 WBC (4.8-10.8) K/uL RBC (4.2-5.4) M/uL Hgb (12.0-16.0) g/dL Hct (37-47) % MCV (80-100) fL MCH (25-34) pg MCHC (32-36) g/dL RDW Std Deviation (36.4-46.3) fL RDW Coeff of Jaron (11.5-14.5) % Plt Count (130-400) K/uL MPV (7.4-10.4) fL Immature Gran % (Auto) % Neut % (Auto) % Lymph % (Auto) % [place] % (Auto) % Eos % (Auto) % Baso % (Auto) % Immature Gran # (Auto) (0.00-0.02) K/uL Neut # (Auto) (1.4-6.5) K/uL Lymph # (Auto) (1.2-3.4) K/uL [place] # (Auto) (0.11-0.59) K/uL Eos # (Auto) (0-0.5) K/uL Baso # (Auto) (0-0.2) K/uL Sodium (136-145) mmol/L Potassium (3.5-5.1) mmol/L Chloride (98-107) mmol/L Carbon Dioxide (21-32) mmol/L Anion Gap (3-11) BUN (7-18) mg/dl Creatinine (0.6-1.2) mg/dl Est Cr Clr Drug Dosing ml/min Est GFR ( Amer) Est GFR (Non-Af Amer) BUN/Creatinine Ratio (10-20) Glucose (70-99) mg/dl POC Glucose 142 H (70-99) Calcium (8.5-10.1) mg/dl PG Care Time/CCT Total # of Minutes Spent Total Time Spent with Patient: Total time spent is greater than 50% in coordination of care (as documented) at patient's floor/unit and/or counseling patient:
[2019-03-26] MEDS: VENLAFAXINE HCL XR 150 MG CAPXR PO SCH (20:43)
[2019-03-26] MEDS: PANTOprazole 40 MG TAB PO SCH (20:43)
[2019-03-26] MEDS: ASPIRIN 81 MG ECTAB PO SCH (20:44)
[2019-03-26] MEDS: LOSARTAN POTASSIUM 25 MG TAB PO SCH (20:44)
[2019-03-26] MEDS: VERAPAMIL HCL 180 MG TABCR PO SCH (20:44)
[2019-03-26] MEDS: DOCUSATE SODIUM/SENNA 50/8.6MG TAB PO SCH (20:44)
[2019-03-27] MEDS: POLYETHYLENE (MIRALAX) 17 GM PACK PO SCH ×3 (06:19→18:21)
[2019-03-27] MEDS: OXYCODONE HCL IR 5 MG TAB (IMMEDIATE RELEASE) PO PRN ×4 (06:52→20:34)
[2019-03-27 06:57] LABS: Hematocrit (blood only) 30.5 % (37-47); Hemoglobin 10.1 g/dL (12.0-16.0); Mean Corpuscular Hgb Conc 33.1 g/dL (32-36); Mean Corpuscular Volume 92.1 fL (80-100); Mean Platelet Volume 9.2 fL (7.4-10.4); Platelet Count 232 K/uL (130-400); RDW Coefficient of Variation 12.6 % (11.5-14.5); RDW Standard Deviation 42.6 fL (36.4-46.3); Red Blood Count 3.31 M/uL (4.2-5.4); White Blood Count 17.76 K/uL (4.8-10.8)
[2019-03-27 07:35] LABS: BUN Creatinine Ratio 36.1 (10-20); Calcium 8.5 mg/dl (8.5-10.1); Creatinine Clr Calc Pharmacy 104.2 ml/min; Est GFR (African American) 108.8; Est GFR (Non-African American) 93.9; Potassium 4.2 mmol/L (3.5-5.1)
[2019-03-27] MEDS: METOPROLOL SUCC 50MG EXT REL TAB PO SCH ×2 (07:59→20:40)
[2019-03-27] MEDS: ROSUVASTATIN CALCIUM 20 MG TAB PO SCH (07:59)
[2019-03-27] MEDS: INSULIN ASPART 100 UNITS/ML 3 ML PEN SC SCH ×4 (08:01→20:43)
[2019-03-27] MEDS: TRAMADOL HCL 50 MG TABLET PO PRN ×2 (08:06→14:42)
--- NOTE | 2019-03-27 12:25 | Orthopedic Progress Note ---
Date of Service March 27, 2019 Assessment & Plan (1) Spinal stenosis, lumbar region with neurogenic claudication: This time we will continue physical therapy advance her bowel regimen. I will give her a short course of Decadron to help with her soreness. Hopefully discharge home later this weekend. Present on Admission?: Yes Subjective Back pain is controlled still struggling with some leg pain with prolonged activity but overall improved. Physical Exam Physical Exam: Exam she is up and ambulating. She has good strength testing. Results & Data Vital Signs (Past 12 Hours) Vital Signs Temp Pulse Resp BP Pulse Ox 03/27/19 06:38 36.4 C L 71 16 112/69 92
[2019-03-27] MEDS: DEXAMETHASONE SOD PHOSPHATE 8 MG in SYRINGE 0 ML IV SCH ×2 (13:30→22:35)
--- NOTE | 2019-03-27 14:38 | Hospitalist Progress Note ---
Date of Service March 27, 2019 Assessment & Plan (1) Spinal stenosis, lumbar region with neurogenic claudication: - Status post #1 lumbar decompression with bilateral medial facetectomies and foraminotomies L3-4 L4-5 L5-S1 per #2 posterior spinal fusion L4-5 L5-S1 per #3 placement posterior his mentation L4-5 L5-S1 per #4 interbody fusion L4-5. #5 placement of peek cage 12 x 22 mm at L4-5 per #6 placement of local autograft in the posterior lateral gutters per #7 placement infuse collagen sponge bone mass graft in the posterior lateral gutters and ostial amp in the interbody space on 03/25/19, POD#2. - Pain control and bowel regimen per primary team (has not had a BM yet, on scheduled Miralax q6hr) - Decadron 8 mg IV q8hr scheduled per ortho. - PT/OT evaluation for discharge planning. - DVT ppx: Aspirin 81 mg qPM. (2) Leukocytosis: - WBC increased, now improving -- appears to be elevated at baseline, ~11. - Will continue to monitor -- on Decadron IV so may expect level to increase over next few days. (3) Anemia: - Hgb below baseline as expected in setting of acute blood loss/procedure. - Will monitor qAM. (4) HLD (hyperlipidemia): - Continue statin as prescribed. (5) HTN (hypertension): - Continue Losartan, Metoprolol and Verapamil as prescribed. (6) Type II diabetes mellitus: - Most recent A1C was 6.1; holding home Metformin. - Ordered SSI coverage. (7) Migraines: - No current symptoms. (8) Anxiety: - Continue Effexor as prescribed. (9) GERD (gastroesophageal reflux disease): - PPI daily. (10) Psoriasis: - No current plaques noted. (11) DVT prophylaxis: - SCDs; Aspirin daily. Dispo: Pt. is medically stable, will sign off. Please call with any questions. Supervising Physician Co-Signing Physician Notes Attending Attestation - Chart reviewed in detail, care plan d/w CHRISTOFER Syed. I agree w/ the lopez components of her consult documentation. POD #2 from lumbar surgery for spinal stenosis. Mild acute blood loss anemia - Hb has dropped 4-5 gm since baseline. Would advise ferrous sulfate supplementation. Other labs remain acceptable. Vitals acceptable. Chronic medical issues are stable. Minor Estrada MD Subjective Pt. is doing well today. Has not had a BM, is not passing gas. Pt. has also been refusing some Miralax doses. Review of Systems Review of Systems: All systems reviewed & are unremarkable except as noted in HPI & below Constitutional: no fever, no chills, no fatigue and no weakness Respiratory: no cough, no dyspnea and no dyspnea on exertion Cardiovascular: no chest pain, no palpitations and no edema Gastrointestinal: + constipation; no abdominal pain, no nausea, no vomiting and no diarrhea/loose stools Genitourinary: no difficulty urinating Musculoskeletal: no back pain and no joint pain Integumentary: no non-healing lesions Allergy / Immunological: no rash Physical Exam Physical Exam: General: Resting comfortably HEENT: NC/AT; PERRLA with EOMI; [place] conjunctiva, MMM. No erythema of posterior pharynx Cardiac: RRR Lungs: CTA bilaterally; No rhonchi, wheezing, or rales Abdomen: Bowel normoactive X 4; Nontender to palpation Extremities: Warm. No edema present Neuro: No focal weakness Skin: No rash Results & Data Vital Signs (Past 12 Hours) Vital Signs Temp Pulse Resp BP Pulse Ox 03/27/19 06:38 36.4 C L 71 16 112/69 92 Laboratory Results 03/27/19 03/27/19 03/27/19 Range/Units 12:08 06:44 06:44 WBC 17.76 H (4.8-10.8) K/uL RBC 3.31 L (4.2-5.4) M/uL Hgb 10.1 L (12.0-16.0) g/dL Hct 30.5 L (37-47) % MCV 92.1 (80-100) fL MCH 30.5 (25-34) pg MCHC 33.1 (32-36) g/dL RDW Std Deviation 42.6 (36.4-46.3) fL RDW Coeff of Jaron 12.6 (11.5-14.5) % Plt Count 232 (130-400) K/uL MPV 9.2 (7.4-10.4) fL Sodium 136 (136-145) mmol/L Potassium 4.2 (3.5-5.1) mmol/L Chloride 105 (98-107) mmol/L Carbon Dioxide 26 (21-32) mmol/L Anion Gap 5.0 (3-11) BUN 26 H (7-18) mg/dl Creatinine 0.71 (0.6-1.2) mg/dl Est Cr Clr Drug Dosing 104.2 ml/min Est GFR ( Amer) 108.8 Est GFR (Non-Af Amer) 93.9 BUN/Creatinine Ratio 36.1 H (10-20) Glucose 96 (70-99) mg/dl POC Glucose 97 (70-99) Calcium 8.5 (8.5-10.1) mg/dl 03/27/19 03/26/19 03/26/19 Range/Units 06:41 20:57 17:13 WBC (4.8-10.8) K/uL RBC (4.2-5.4) M/uL Hgb (12.0-16.0) g/dL Hct (37-47) % MCV (80-100) fL MCH (25-34) pg MCHC (32-36) g/dL RDW Std Deviation (36.4-46.3) fL RDW Coeff of Jaron (11.5-14.5) % Plt Count (130-400) K/uL MPV (7.4-10.4) fL Sodium (136-145) mmol/L Potassium (3.5-5.1) mmol/L Chloride (98-107) mmol/L Carbon Dioxide (21-32) mmol/L Anion Gap (3-11) BUN (7-18) mg/dl Creatinine (0.6-1.2) mg/dl Est Cr Clr Drug Dosing ml/min Est GFR ( Amer) Est GFR (Non-Af Amer) BUN/Creatinine Ratio (10-20) Glucose (70-99) mg/dl POC Glucose 100 H 110 H 133 H (70-99) Calcium (8.5-10.1) mg/dl PG Care Time/CCT Total # of Minutes Spent Total Time Spent with Patient: Total time spent is greater than 50% in c oordination of care (as documented) at patient's floor/unit and/or counseling patient:
[2019-03-27] MEDS: DOCUSATE SODIUM/SENNA 50/8.6MG TAB PO SCH (20:39)
[2019-03-27] MEDS: VERAPAMIL HCL 180 MG TABCR PO SCH (20:39)
[2019-03-27] MEDS: PANTOprazole 40 MG TAB PO SCH (20:40)
[2019-03-27] MEDS: LOSARTAN POTASSIUM 25 MG TAB PO SCH (20:40)
[2019-03-27] MEDS: VENLAFAXINE HCL XR 150 MG CAPXR PO SCH (20:40)
[2019-03-27] MEDS: ASPIRIN 81 MG ECTAB PO SCH (20:40)
[2019-03-28] MEDS: POLYETHYLENE (MIRALAX) 17 GM PACK PO SCH ×5 (00:06→23:20)
[2019-03-28] MEDS: OXYCODONE HCL IR 5 MG TAB (IMMEDIATE RELEASE) PO PRN ×4 (01:01→23:19)
[2019-03-28] MEDS: DEXAMETHASONE SOD PHOSPHATE 8 MG in SYRINGE 0 ML IV SCH ×3 (05:33→21:07)
[2019-03-28 06:28] LABS: Hematocrit (blood only) 29.8 % (37-47); Mean Corpuscular Hgb Conc 33.6 g/dL (32-36); Mean Corpuscular Volume 90.3 fL (80-100); Mean Platelet Volume 9.7 fL (7.4-10.4); Platelet Count 224 K/uL (130-400); RDW Coefficient of Variation 12.3 % (11.5-14.5); White Blood Count 14.33 K/uL (4.8-10.8)
[2019-03-28 07:03] LABS: BUN Creatinine Ratio 32.3 (10-20); Calcium 9.1 mg/dl (8.5-10.1); Creatinine Clr Calc Pharmacy 121.3 ml/min; Est GFR (African American) 115.8; Est GFR (Non-African American) 99.9; Potassium 4.4 mmol/L (3.5-5.1)
[2019-03-28] MEDS: ROSUVASTATIN CALCIUM 20 MG TAB PO SCH (08:00)
[2019-03-28] MEDS: METOPROLOL SUCC 50MG EXT REL TAB PO SCH ×2 (08:00→21:07)
[2019-03-28] MEDS: INSULIN ASPART 100 UNITS/ML 3 ML PEN SC SCH ×4 (08:03→21:13)
[2019-03-28] MEDS: TRAMADOL HCL 50 MG TABLET PO PRN ×3 (08:12→20:04)
--- NOTE | 2019-03-28 08:46 | Orthopedic Progress Note ---
Date of Service March 28, 2019 Assessment & Plan (1) Spinal stenosis, lumbar region with neurogenic claudication: At this point patient is still not had a bowel movement. We will continue with her bowel regimen per we will continue GI and DVT prophylaxis as well as pain control. We will hold on her discharge today and likely get her home tomorrow. Subjective Patient was seen in room 301 bedside. She is status post lumbar decompression fusion from L4-S1 and is postoperative day #3. She still has not had a bowel movement. She still has an admixture of both lower back pain and pain that radiates down her left leg. She feels somewhat bloated but is tolerating p.o. She is not nauseous. She is utilizing oxycodone for pain control. She denies any other numbness, tingling, or paresthesias. Physical Exam 2 Physical Exam: On exam patient is alert and oriented. She is in no apparent distress. Her abdomen soft nontender her calves are supple nontender. Her strength and sensation both intact. Her dressing is clean dry and intact. Her PATRICIA drains in place and is holding suction. Results & Data Vital Signs (Past 12 Hours) Vital Signs Temp Pulse Resp BP BP Pulse Ox 03/28/19 06:54 36.4 C L 60 18 117/66 96 03/27/19 23:25 36.4 C L 67 16 156/71 H 96
[2019-03-28] MEDS: VERAPAMIL HCL 180 MG TABCR PO SCH (21:05)
[2019-03-28] MEDS: DOCUSATE SODIUM/SENNA 50/8.6MG TAB PO SCH (21:06)
[2019-03-28] MEDS: PANTOprazole 40 MG TAB PO SCH (21:06)
[2019-03-28] MEDS: LOSARTAN POTASSIUM 25 MG TAB PO SCH (21:06)
[2019-03-28] MEDS: VENLAFAXINE HCL XR 150 MG CAPXR PO SCH (21:06)
[2019-03-28] MEDS: ASPIRIN 81 MG ECTAB PO SCH (21:06)
[2019-03-29] MEDS: POLYETHYLENE (MIRALAX) 17 GM PACK PO SCH (06:17)
[2019-03-29] MEDS: DEXAMETHASONE SOD PHOSPHATE 8 MG in SYRINGE 0 ML IV SCH (06:17)
--- NOTE | 2019-03-29 07:36 | Discharge Summary ---
Date of Service March 29, 2019 Admission HPI Per Admitting Provider This is a 50-year-old female who presents with chronic persistent back and leg pain. After failing extensive course of nonoperative care she is here for surgical intervention. Discharge Data Consultations 03/25/19 16:25 Consult Case Management - Discharge Planning Routine Consult Hospitalist Routine Procedures Performed Operation Date: 03/25/19 12:55 Actual Procedures p [id number] and Fusion, with Spinal Cord Mointoring, Use of Infuse and Osteoamp(Not Applicable) - Antony Magdaleno DO [facility] Course (1) Spinal stenosis, lumbar region with neurogenic claudication: Patient is a 58-year-old female with history physical examination and radiographic images consistent with spinal stenosis. For this reason she is undergone a lumbar decompression and fusion from L4-S1 on 03/25/2019. This was performed by Dr. Magdaleno under general anesthesia. She left the operating room with a PATRICIA drain Santana in place and was transferred to PACU in stable condition. She was seen by physical therapy postop day 1. She is placed on GI and DVT prophylaxis. She progressed well with physical therapy and on 03/29/2019 met discharge criteria. She was discharged home. Her discharge instructions were to avoid any bending or lifting. She should change her dressing once daily until there is no drainage once there is no drainage she may begin showering. Follow-up care is to be seen in 2 weeks in the office or sooner if she develops any fevers chills or increased drainage.
[2019-03-29] MEDS: METOPROLOL SUCC 50MG EXT REL TAB PO SCH (08:03)
[2019-03-29] MEDS: ROSUVASTATIN CALCIUM 20 MG TAB PO SCH (08:03)
[2019-03-29] MEDS: INSULIN ASPART 100 UNITS/ML 3 ML PEN SC SCH (08:06)
[2019-03-29] MEDS: TRAMADOL HCL 50 MG TABLET PO PRN (08:11)
[2019-03-29] MEDS: OXYCODONE HCL IR 5 MG TAB (IMMEDIATE RELEASE) PO PRN (12:14)
== END 2019-03-29 12:58 | disposition home health service (06) | DRG 455 ==
LOC: ASU 10:52 → 3E 15:16
DX: E11.9 Type 2 diabetes mellitus without complications; F17.210 Nicotine dependence, cigarettes, uncomplicated; Z79.84 Long term (current) use of oral hypoglycemic drugs; Z80.3 Family history of malignant neoplasm of breast; K21.9 Gastro-esophageal reflux disease without esophagitis; M48.062 Spinal stenosis, lumbar region with neurogenic claudication; Z80.1 Family history of malignant neoplasm of trachea, bronchus and lung; E78.5 Hyperlipidemia, unspecified